=== PATIENT | male | born 1950 | race Caucasian/White ===

== ENCOUNTER 2022-09-28 18:45 | Emergency (ER) | payer BC, OTHER ==
[~2022-09-28] VITALS: Ht 182.9 cm; Wt 122.5 kg
[2022-09-28 18:54] VITALS: BP_SYST 132
--- NOTE | 2022-09-28 18:56 | NUR ---
Patient to ER bed 7 to gown for evaluation. Side rails up.
--- NOTE | 2022-09-28 18:57 | NUR ---
ER at bedside examining patient.
[2022-09-28] MEDS ORDERED: methylPREDNISolone SOD SUCC/PF 62.5 MG/ML VIAL IVP ONE (19:00)
[2022-09-28] MEDS ORDERED: FAMOTIDINE PF 20 MG/2 ML VIAL IVP ONE (19:00)
[2022-09-28] MEDS ORDERED: NACL 0.9% 1,000 ML IV ONE (19:00)
[2022-09-28] MEDS ORDERED: DIPHENHYDRAMINE INJ 50 MG/ML VIAL IVP ONE (19:00)
--- NOTE | 2022-09-28 19:00 | NUR ---
pATIENT came to room for c/o upper lip swelling. Patient says he suspected it was from his blood pressure medication. Denies eating or drinking anything out of the ordinary. Respiration even and unlabored. Alert and oriented x4. No distress noted. Will continue to monitor.
[2022-09-28 19:19] VITALS: BP_SYST 120
[2022-09-28] MEDS ORDERED: PRED20TA PO (21:07)
[2022-09-28] MEDS ORDERED: FAMO-132 PO (21:07)
[2022-09-28] MEDS ORDERED: DIPH25CA83 PO (21:07)
[2022-09-28] MEDS ORDERED: AMLO5TAB4 PO (21:10)
--- NOTE | 2022-09-28 21:21 | NUR ---
Patient given written and verbal discharge instructions and verbalizes understanding. ER MD discussed with patient the results and treatment provided. Patient in stable condition. ID arm band removed. IV catheter removed intact and dressing applied, no active bleeding. Rx of MEDS given. Patient educated on pain management and to follow up with PMD. Pain Scale . Opportunity for questions provided and answered. Medication side effect fact sheet provided.
== END 2022-09-28 21:21 | disposition home or self-care (01) ==
LOC: SED 18:45
DX: T78.3XXA Angioneurotic edema, initial encounter (principal); I10 Essential (primary) hypertension; Z88.0 Allergy status to penicillin; Z88.5 Allergy status to narcotic agent; Z79.899 Other long term (current) drug therapy
CPT/HCPCS: 99284; 96374; 96361; 96375; J1200; J3490; J2930; J7030

== ENCOUNTER 2023-10-13 07:42 | Emergency (ER) | payer BC, OTHER ==
[~2023-10-13] VITALS: Ht 167.6 cm; Wt 117.9 kg
[~2023-10-13 07:42] MED LIST: AMLO5TAB4 PO; DIPH25CA83 PO; FAMO-132 PO; PRED20TA PO
[2023-10-13 07:45] VITALS: BP_SYST 140; PULSE 96; RESP 18; TEMP 98.6; O2SAT 97
[2023-10-13] MEDS ORDERED: LIDOCAINE/EPI 1% 1:100000 20 ML VIAL ONE (08:03)
[2023-10-13] MEDS: DIPHTH,PERTUSS(ACELL),TET VAC 0.5 ML VIAL (Tdap) I.M. ONE (08:29)
[2023-10-13] MEDS: LIDOCAINE/EPI 1% 1:100000 20 ML VIAL INJ ONE (08:32)
[2023-10-13] MEDS: LIDOCAINE 1% 10 MG/ML, 20 ML MDV INJ ONE (08:32)
[2023-10-13] MEDS ORDERED: BACITRACIN 1 GM OINT TP ONE (09:32)
[2023-10-13] MEDS ORDERED: AMPICILLIN SODIUM/SULBACTAM NA 3 GM VIAL ONE (10:14)
[2023-10-13] MEDS: AMPICILLIN SODIUM/SULBACTAM NA 3 GM in NS 100 ML IV ONE (10:24)
[2023-10-13] MEDS ORDERED: AUG875 PO (11:03)
[2023-10-13] MEDS ORDERED: CIPR500T5 PO (11:05)
[2023-10-13 11:16] VITALS: BP_SYST 130; PULSE 88; RESP 17; TEMP 98.6; O2SAT 96
== END 2023-10-13 11:18 | disposition home or self-care (01) ==
LOC: SED 07:42
DX: S63.257A Unspecified dislocation of left little finger, initial encounter (principal); Z23 Encounter for immunization; I10 Essential (primary) hypertension; Z88.0 Allergy status to penicillin; Z88.5 Allergy status to narcotic agent; Z79.899 Other long term (current) drug therapy; Z79.2 Long term (current) use of antibiotics; W31.1XXA Contact with metalworking machines, initial encounter; Y93.H2 Activity, gardening and landscaping; Y92.89 Other specified places as the place of occurrence of the external cause; Y99.8 Other external cause status
CPT/HCPCS: 99284; 96365; 73130; 90715; 90471; 12002; J0295